=== PATIENT | female | born 1980 | race Caucasian/White ===

== ENCOUNTER 2017-03-18 08:34 | Emergency (ER) | payer OTHER, BC ==
[~2017-03-18] VITALS: Ht 172.7 cm; Wt 81.6 kg
[~2017-03-18 08:34] MED LIST: ARPZ10T PO; CEPH500C PO; FLUC200T45 PO; HYDR-1231 PO; ONDA-42 SL; RNT150T PO; SULF1TAB38 PO; [UNRECOGNIZED DRUG - CODE] VG
[2017-03-18] MEDS ORDERED: TETANUS,DIPTH,PERTUSS P/F (BOOSTRIX) 0.5 ML VIAL IM STA (09:39)
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
--- NOTE | 2017-03-18 09:57 | Diagnostic Imaging Report ---
PA and lateral views of the chest Indication: Chest pain Findings: The lungs are clear. The heart size is normal. There is no effusion or pneumothorax The mediastinum and seble appear unremarkable. Impression: Unremarkable study. Dictated by: Dictated on workstation # [id number]
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
[2017-03-18] MEDS ORDERED: HYDR-3812 PO (10:03)
[2017-03-18] MEDS ORDERED: CYCL10TA9 PO (10:03)
[2017-03-18 10:51] VITALS: BP 112/74
== END 2017-03-18 10:51 | disposition home or self-care (01) ==
LOC: EDUNIT# 08:34 → ER 08:36
DX: S00.81XA Abrasion of other part of head, initial encounter (principal); S49.92XA Unspecified injury of left shoulder and upper arm, initial encounter; Z23 Encounter for immunization; F17.210 Nicotine dependence, cigarettes, uncomplicated; V43.52XA Car driver injured in collision with other type car in traffic accident, initial encounter; Y92.414 Local residential or business street as the place of occurrence of the external cause; Y99.8 Other external cause status
CPT/HCPCS: 70450; 71020; 73030; 90471; 90715; 99283

== ENCOUNTER → 2017-04-15 | Outpatient (CLI) | payer OTHER, BC ==
[~2017-04-15] MED LIST changes: +CYCL10TA9 PO; +HYDR-3812 PO
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
== END ==
LOC: RAD 15:18
PROVIDERS: ATTEND Nurse Practitioner Family
DX: S42.125A Nondisplaced fracture of acromial process, left shoulder, initial encounter for closed fracture (principal); V89.2XXA Person injured in unspecified motor-vehicle accident, traffic, initial encounter
CPT/HCPCS: 73221

== ENCOUNTER → 2018-07-06 | Outpatient (CLI) | payer BC ==
[~2018-07-06] MED LIST changes: +ACHD5005 PO; -HYDR-3812 PO
== END ==
LOC: RAD 15:17
PROVIDERS: ATTEND Obstetrics & Gynecology
DX: Z12.31 Encounter for screening mammogram for malignant neoplasm of breast (principal)
CPT/HCPCS: 77067

== ENCOUNTER → 2019-05-31 | Outpatient (CLI) | payer BC ==
--- NOTE | 2019-05-31 16:10 | Diagnostic Imaging Report ---
Indication: Left knee pain 3 views of the left knee show postop changes from ACL reconstruction. There slight joint space narrowing in the medial tibiofemoral joint space. There are also small osteophytes forming at the medial edge of the articular surface. Impression: Postsurgical changes of the left knee knee with some degenerative changes in the medial compartment. No acute abnormality seen. Dictated by: Dictated on workstation # [id number]
== END ==
LOC: RAD 15:49
PROVIDERS: ATTEND Nurse Practitioner Family
DX: M17.12 Unilateral primary osteoarthritis, left knee (principal); Z98.890 Other specified postprocedural states
CPT/HCPCS: 73562

== ENCOUNTER → 2019-07-07 | Outpatient (CLI) | payer BC ==
--- NOTE | 2019-07-07 19:09 | Diagnostic Imaging Report ---
INDICATION: Routine screening. COMPARISON: Comparison is made with prior mammogram from 07/06/2018. TECHNIQUE: 2-D and 3-D bilateral screening mammography was performed. The current study was also evaluated with a Computer Aided Detection (CAD) system. 3-D tomosynthesis was also performed and reviewed. FINDINGS: Both breasts are heterogeneously dense, limiting the sensitivity of mammography. The parenchymal pattern is stable. Benign calcifications in the right breast are noted. No mass or malignant-appearing microcalcifications are seen. The axillae are unremarkable. IMPRESSION: No mammographic features suspicious for malignancy are identified. ACR BI-RADS Category 2: Benign findings. Result letter will be mailed to the patient. Note: At least 10% of breast cancer is not imaged by mammography. Dictated by: Dictated on workstation # [id number]
== END ==
LOC: RAD 14:10
PROVIDERS: ATTEND Obstetrics & Gynecology
DX: Z12.31 Encounter for screening mammogram for malignant neoplasm of breast (principal)
CPT/HCPCS: 77067